=== PATIENT | male | born 1935 | race Asian ===

== ENCOUNTER 2020-10-31 10:57 | Inpatient (IN) | payer MEDICARE, BC ==
[~2020-10-31] VITALS: Ht 167.6 cm; Wt 62.1 kg
[2020-10-31] VITALS (35 sets, daily range): BP systolic 71–140; BP diastolic 34–96
--- NOTE | 2020-10-31 10:57 | NUR ---
PT BIBRA 102 FROM Compact Particle Acceleration C/O SOB/ LOW O2 SAT AT 80% ON RA. PT IS AAOX4, NOTED MILD RESPIRATORY DISTRES, HOOKED TO O2 AT 15LPM VIA RB. HOOKED TO PLUMBING INSTALLER, KEPT RESTED AND COMFORTABLE. WILL CONTINUE TO MONITOR.
--- NOTE | 2020-10-31 11:08 | NUR ---
SEEN AND EXAMINED BY .
--- NOTE | 2020-10-31 11:10 | NUR ---
IV LINE ESTABLISHED BLOOD DRAWN AND SENT TO LAB.
--- NOTE | 2020-10-31 11:15 | NUR ---
MOVE SHEET SUBMITTED.
--- NOTE | 2020-10-31 11:16 | NUR ---
REVIEW NURSE AT BEDSIDE FOR XRAY.
[2020-10-31] MEDS ORDERED: ACETAMINOPHEN 650 MG/SUPP.RECT RC ONE ×2 (11:17→11:30)
[2020-10-31] MEDS ORDERED: IV NS 0.9% 1,000 ML BAG IV ONE (11:30)
[2020-10-31] MEDS ORDERED: VANCOMYCIN 1 GM in IV D5W 250 ML IV ONE (11:30)
[2020-10-31] MEDS ORDERED: PIPERACILLIN /TAZOBACTAM 3.375 G in IV D5W 50 ML IV ONE (11:30)
[2020-10-31 11:35] LABS: BASOPHILS # (AUTO) 0.1 K/uL (0.0-0.2); BASOPHILS % (AUTO) 1.7 % (0.0-2.0); EOSINOPHILS % (AUTO) 1.2 % (0.0-6.0); HEMATOCRIT 31 % (39-51); HEMOGLOBIN 9.9 g/dL (13.5-17.5); LYMPHOCYTES # (AUTO) 1.1 K/uL (0.8-4.8); LYMPHOCYTES % (AUTO) 19.2 % (20.0-44.0); MEAN CORPUSCULAR HGB CONC 32 g/dl (31.0-36.0); MEAN CORPUSCULAR VOLUME 111 fL (80-96); MONOCYTES # (AUTO) 0.4 K/uL (0.1-1.30); MONOCYTES % (AUTO) 7.7 % (2.0-12.0); NEUTROPHILS # (AUTO) 3.9 K/uL (1.8-8.9); NEUTROPHILS % (AUTO) 70.2 % (43.0-81.0); PLATELET COUNT (AUTO) 66 K/uL (150-450); RED BLOOD CELL COUNT(AUTO) 2.81 MIL/uL (4.5-6.0); WHITE BLOOD COUNT (AUTO) 5.5 K/uL (4.3-11.0)
[2020-10-31] MEDS ORDERED: SENN-261 PO (11:37)
[2020-10-31] MEDS ORDERED: DULO20CA PO (11:37)
[2020-10-31] MEDS ORDERED: BISA10SU11 RC (11:37)
[2020-10-31] MEDS ORDERED: ALLO100T PO (11:37)
[2020-10-31] MEDS ORDERED: MAGN400O6 PO (11:37)
[2020-10-31] MEDS ORDERED: MIRT-90 PO (11:37)
[2020-10-31] MEDS ORDERED: METO25TA20 PO (11:37)
[2020-10-31] MEDS ORDERED: INSU100V11 SQ (11:37)
[2020-10-31] MEDS ORDERED: GLUC1KIT IM (11:37)
[2020-10-31] MEDS ORDERED: CYAN-51 PO (11:37)
[2020-10-31] MEDS ORDERED: ACET-868 PO (11:37)
[2020-10-31] MEDS ORDERED: THIA100T70 PO (11:37)
[2020-10-31] MEDS ORDERED: ESCI5TAB PO (11:37)
[2020-10-31] MEDS ORDERED: APIX2.5T PO (11:37)
[2020-10-31] MEDS ORDERED: FOLI0.4T6 PO (11:37)
[2020-10-31] MEDS ORDERED: GABA-532 PO (11:37)
[2020-10-31] MEDS ORDERED: LEVO250P3 IV (11:37)
[2020-10-31] MEDS ORDERED: SODI3.5O5 EACHEYE (11:37)
[2020-10-31] MEDS ORDERED: FINA5TAB11 PO (11:37)
[2020-10-31] MEDS ORDERED: CHOL100062 PO (11:37)
[2020-10-31] MEDS ORDERED: HYDR-4076 PO (11:37)
[2020-10-31] MEDS ORDERED: VANC1PIG IV (11:37)
[2020-10-31] MEDS ORDERED: MELA1TAB47 PO (11:37)
[2020-10-31] MEDS ORDERED: TAMS-12 PO (11:37)
[2020-10-31] MEDS ORDERED: NA P133E RC (11:37)
[2020-10-31] MEDS ORDERED: POLY15DR40 EACHEYE (11:37)
--- NOTE | 2020-10-31 11:40 | NUR ---
URINE SPECIMEN COLLECTED AND SENT TO LAB.
[2020-10-31 11:50] LABS: BILIRUBIN,URINE SMALL (NEGATIVE); COLOR,URINE ORANGE (YELLOW); LEUKOCYTE ESTERASE ,URINE TRACE (NEGATIVE); NITRITE, URINE NEGATIVE (NEGATIVE); PROTEIN,URINE TRACE mg/dl (NEGATIVE); UGLUCOSE NEGATIVE (NEGATIVE); UROBILINOGEN,URINE 0.2 EU/dL (0.2)
[2020-10-31 11:56] LABS: CALCIUM, SERUM 9.4 mg/dL (8.5-10.1); CARBON DIOXIDE 24 mmol/L (21-32); CHLORIDE 125 mmol/L (98-107); CREATININE 3.4 mg/dL (0.6-1.3); GLUCOSE 56 mg/dL (74-106); UREA NITROGEN, BLOOD 58 mg/dL (7-18)
[2020-10-31 12:01] LABS: ALANINE AMINOTRANSFERASE 15 U/L (12-78); ALBUMIN 2.3 g/dL (3.4-5.0); ALKALINE PHOSPHATASE 54 U/L (46-116); ASPARTATE AMINOTRANSFERASE 63 U/L (15-37); BILIRUBIN,DIRECT 1.7 mg/dL (0.0-0.2); BILIRUBIN,TOTAL 2.4 mg/dL (0.2-1.0); TOTAL PROTEIN, SERUM 7.1 g/dL (6.4-8.2)
[2020-10-31 12:02] LABS: ABG BASE EXCESS -6.7 mmol/L; ABG OXYGEN SATURATION 96.1 % (92.0-98.5); ABG PCO2 35.4 mmHg (35.0-45.0); ABG PH 7.335 (7.350-7.450); ABG PO2 100.8 mmHg (75.0-100.0); AaDO2 237.5 mmHg; COHb 0.3 % (0.5-1.5); MetHb 0.4 % (0.0-1.5); O2Hb 95.4 % (94.0-97.0); SITE, ABG Right Radial; VENT MODE, BG simple mask
[2020-10-31 12:02] LABS: SODIUM SERUM 162 mmol/L (136-145)
[2020-10-31 12:03] LABS: WBC,URINE 81-100 /HPF (0-3)
[2020-10-31 12:04] LABS: BACTERIA,URINE 2+ /HPF (None Seen); YEAST,URINE Hyphal filaments /HPF (None Seen)
--- NOTE | 2020-10-31 12:05 | NUR ---
BRENDA DAUGHTER [phone]
--- NOTE | 2020-10-31 12:15 | NUR ---
[facility] CALLED SOFTWARE RELEASE ENGINEER PAGED.
--- NOTE | 2020-10-31 12:19 | NUR ---
LATEST V/S REPORTED TO . 1L NORMAL SALINE STARTED ORDERED.
[2020-10-31] MEDS ORDERED: IV NS 0.9% 1,000 ML IV ONE (12:30)
[2020-10-31 12:42] LABS: EOSINOPHILS % (MANUAL) 2 % (0-4); LYMPHOCYTES % (MANUAL) 24 % (16-48); MONOCYTES % (MANUAL) 6 % (0-11.0); NEUTROPHILS % (MANUAL) 68 (42-76)
--- NOTE | 2020-10-31 13:06 | NUR ---
GOT BED 256
--- NOTE | 2020-10-31 13:14 | NUR ---
REPORT GIVEN TO SAM MCINTOSH OF ICU FOR GARRET.
[2020-10-31] MEDS ORDERED: MAG HYDROX/AL HYDROX/SIMETH 30 ML UDC PO PRN (14:00)
[2020-10-31] MEDS ORDERED: NA PHOS,M-B/NA PHOS,DI-BA 1 EA ENEMA RC PRN (14:00)
[2020-10-31] MEDS ORDERED: BISACODYL SUPP (10 MG) 10 MG/SUPP.RECT SUPP.RECT RC PRN (14:00)
[2020-10-31] MEDS ORDERED: NOREPINEPHRINE 8 MG in IV NS 0.9% 250 ML IV ONE (14:00)
[2020-10-31] MEDS ORDERED: hydrALAZINE HCL 25 MG TABLET PO PRN (14:00)
[2020-10-31] MEDS ORDERED: MAGNESIUM HYDROXIDE 30 ML UDC PO PRN ×2 (14:00)
[2020-10-31] MEDS ORDERED: ACETAMINOPHEN 325 MG TABLET PO PRN ×2 (14:00)
[2020-10-31] MEDS ORDERED: SENNOSIDES 8.6 MG TABLET PO PRN (14:00)
[2020-10-31] MEDS ORDERED: ONDANSETRON HCL/PF 4 MG/2 ML VIAL IVP PRN (14:00)
[2020-10-31] MEDS ORDERED: Z GUARD REMEDY 2 OZ OINT TP PRN (14:00)
[2020-10-31] MEDS ORDERED: ZOLPIDEM TARTRATE 5 MG TABLET PO PRN (14:00)
[2020-10-31] MEDS ORDERED: DEXTROSE 50%-WATER 50 ML DISP.SYRIN IV PRN (14:00)
[2020-10-31] MEDS ORDERED: Medication Not On Formulary EA (Melatonin 1 MG) PO PRN (14:00)
--- NOTE | 2020-10-31 14:20 | NUR ---
ADMISSION NOTES PT BROUGHT UP TO ICU VIA ED GURNEY ACCOMPANIED BY RN AND TECH. PT IS A&OX0 AND BREATHING EVEN AND UNLABROED ON 6L SIMPLE MASK. GURGLING COULD BE HEARD FROM PT UPPER AIRWAY. PT TRANSFERRED TO HOSPITAL BED VIA DRAW SHEET. PT CURRENTLY ON 0.1 LEVO. SKIN ASSESSMENT WILL START SOON. PT WAS UNABLE TO DRINK FLUIDS CAUSING A SERIOUS RISK FOR ASPIRATION. SR ON THE MONITOR. VSS, ADMISSION WILL START SOON.
[2020-10-31] MEDS ORDERED: GLUCAGON,HUMAN RECOMBINANT 1 MG/VIAL VIAL IM PRN (15:00)
[2020-10-31] MEDS ORDERED: IV NS 0.9% 1,000 ML IV PRN (16:30)
[2020-10-31] MEDS: CYANOCOBALAMIN 500 MCG TABLET PO SCH (17:00)
[2020-10-31] MEDS ORDERED: METOPROLOL TARTRATE 25 MG TABLET PO SCH (17:00)
[2020-10-31] MEDS: POLYVINYL ALCOHOL/POVIDONE 0.4 ML DROPERETTE EACHEYE SCH (17:18)
[2020-10-31] MEDS: FINASTERIDE (5 MG) 5 MG TABLET PO SCH (18:00)
--- NOTE | 2020-10-31 18:00 | NUR ---
LAB REPORT ZOILA FROM LAB CALLED AND GAVE REPORT. TROPONIN I IS 1.284. RN READ BACK TO CONFIRM, WILL INFORM .
--- NOTE | 2020-10-31 18:05 | NUR ---
MD COMMUNICATION RN INFORMED OF PT'S TROPONIN I . ACKNOWLEDGED. NO NEW ORDERS AT THIS TIME.
[2020-10-31] MEDS: BLOOD SUGAR DIAGNOSTIC 1 EACH STRIP IN SCH ×2 (18:12→23:57)
--- NOTE | 2020-10-31 18:17 | NUR ---
PLATE GLASS GRINDER SPOKE TO PT'S DAUGHTER BRENDA VALENTINE ([phone]). BRENDA STATES THAT PATIENT PT IS FULLY VACCINATED FOR COVID, STATES HE GOT BOTH SHOTS AROUND FEBRUARY AND MARCH, UNSURE WHETHER PFYZER OR MODERNA. BRENDA STATES PT WAS ONLY AT [facility] FOR 1 DAY BEFORE COMING HERE. PT LIVES AT [facility] ([phone]) WITH HIS . AT THIS TIME BRENDA STATES SHE WOUND LIKE PT TO BE A FULL CODE BUT WILL TALK TO HER SISTER FILOMENA ARANGO ([phone]) AND HER MOTHER, PATIENTS IF THEY WISH TO CHANGE PT'S CODE STATUS. PLATE GLASS GRINDER EXPLAINED THE DIFFERENCE BETWEEN FULL CODE, DNR, DNI AND CHEMICAL CODE, BRENDA STATED UNDERSTANDING. BRENDA STATED THAT SHE LIVES IN [place], [place] AND FILOMENA LIVES IN THE [place] SO NEITHER DAUGHTER LIVES NEAR BY.
[2020-10-31] MEDS: CEFEPIME 1 GM in IV D5W 50 ML IV SCH (18:20)
--- NOTE | 2020-10-31 18:28 | NUR ---
A REP FROM [facility] ([phone]) CALLED TO SEE IF WE NEEDED ANY MORE INFORMATION ABOUT THE PATIENT. MILL WORK ASKED FOR INFORMATION REGARDING PATIENTS COVID VACCINATIONS. REP STATED PT GOT PFIZER VACCINE AND WILL FAX OVER A COPY OF PT'S VACCINE CARD FOR SPECIFIC DATES.
--- NOTE | 2020-10-31 19:11 | NUR ---
RN NOTES PT REPORT AND SBAR GIVEN TO PRESS HAND SUPERVISOR RN. PT CURRENTLY A&OX0 BREATHING EVEN AND UNLABORED ON 6L SIMPLE MASK. FLACC = 0. PT STILL UNABLE TO SWALLOW WATER. LEVO @ 0.2. PT ENDORSED IN STABLE CONDITIN. ALL QUESTIONS ANSWERED.
[2020-10-31] MEDS: HYDROCORTISONE SOD SUCCINATE 100 MG/2 ML VIAL IV SCH (19:30)
--- NOTE | 2020-10-31 19:45 | NUR ---
RN NOTE NOTIFIED STEM ROLLER SOBEIDA ALVARADO REGARDING ELECTROLYTES AND SODIUM AT 162, IVF CHANGE TO D5 0/45% NS @ 100ML/HR
--- NOTE | 2020-10-31 19:50 | NUR ---
RT NOTE NASOTRACHEAL SUCTION PERFORMED ON PATIENT. MODERATE THICK BANUELOS AND BLOODY SECRETIONS NOTED. PT TOLERATED WELL. SAM CROOKS @ BEDSIDE. B/S IMPROVED POST SX. WILL CONTINUE TO MONITOR CLOSELY.
--- NOTE | 2020-10-31 20:30 | NUR ---
RN NOTE: PERSON TO NOTIFY & CODE STATUS SPOKE WITH DAUGHTER BRENDA, WHO SAYS SHE WILL BE THE PERSON TO NOTIFY. SHE AND HER FAMILY VOCALIZED TO US HER FATHER WILL BE DNR/DNI. WITNESSED BY CEDRIC VARGAS
[2020-10-31] MEDS: IV D5/0.45 NACL 1,000 ML IV PRN (20:44)
[2020-10-31] MEDS ORDERED: CEFEPIME 2 GM in IV D5W 100 ML IV SCH (21:00)
[2020-10-31] MEDS ORDERED: NOREPINEPHRINE 4 MG/4 ML AMPUL IV ONE (21:58)
[2020-10-31] MEDS: TAMSULOSIN 0.4 MG CAP.SR.24H PO SCH (22:00)
[2020-10-31] MEDS: MIRTAZAPINE 15 MG TABLET PO SCH (22:00)
[2020-10-31] MEDS: NOREPINEPHRINE 8 MG in IV NS 0.9% 242 ML IV PRN (22:12)
--- NOTE | 2020-10-31 23:59 | NUR ---
RN NOTE BLOOD SUGAR 125, NO COVERAGE NEEDED
[2020-11-01] VITALS (95 sets, daily range): BP systolic 70–147; BP diastolic 42–104
--- NOTE | 2020-11-01 00:17 | NUR ---
RN NOTE NOTIFIED HEEL EDGE INKER MACHINE SOBEIDA ALVARADO REGARDING PT INCREASING TROPONIN LEVELS, ORDERS FOR ANOTHER TROP IN 4 HOURS CARRIED OUT ALSO NOTIFIED LOZENGE MAKER HELPER REGARDING ACCU CHECK NO SSI, ORDERS FOR MILD SSI CARRIED OUT
[2020-11-01] MEDS: HYDROCORTISONE SOD SUCCINATE 100 MG/2 ML VIAL IV SCH ×3 (04:23→21:12)
[2020-11-01 04:39] LABS: BASOPHILS # (AUTO) 0.1 K/uL (0.0-0.2); BASOPHILS % (AUTO) 0.6 % (0.0-2.0); EOSINOPHILS % (AUTO) 0.3 % (0.0-6.0); HEMATOCRIT 32 % (39-51); LYMPHOCYTES # (AUTO) 0.4 K/uL (0.8-4.8); LYMPHOCYTES % (AUTO) 4.4 % (20.0-44.0); MEAN CORPUSCULAR HGB CONC 32 g/dl (31.0-36.0); MEAN CORPUSCULAR VOLUME 112 fL (80-96); MONOCYTES # (AUTO) 0.3 K/uL (0.1-1.30); MONOCYTES % (AUTO) 3.2 % (2.0-12.0); NEUTROPHILS % (AUTO) 91.5 % (43.0-81.0); PLATELET COUNT (AUTO) 54 K/uL (150-450); RED BLOOD CELL COUNT(AUTO) 2.82 MIL/uL (4.5-6.0); WHITE BLOOD COUNT (AUTO) 8.8 K/uL (4.3-11.0)
[2020-11-01 05:05] LABS: CHOLESTEROL 58 mg/dL (<200); HDL CHOLESTEROL 26 mg/dL (40-60); LDL 18 mg/dL (0-99); TRIGLYCERIDES 56 mg/dL (30-150); VANCOMYCIN,RANDOM 33 ug/ml (18-26)
[2020-11-01 05:09] LABS: ALANINE AMINOTRANSFERASE 22 U/L (12-78); ALBUMIN 2.2 g/dL (3.4-5.0); ALKALINE PHOSPHATASE 66 U/L (46-116); ASPARTATE AMINOTRANSFERASE 113 U/L (15-37); BILIRUBIN,TOTAL 2.9 mg/dL (0.2-1.0); CALCIUM, SERUM 8.6 mg/dL (8.5-10.1); CARBON DIOXIDE 19 mmol/L (21-32); CHLORIDE 125 mmol/L (98-107); CREATININE 3.4 mg/dL (0.6-1.3); GLUCOSE 185 mg/dL (74-106); MAGNESIUM 1.9 mg/dL (1.8-2.4); TOTAL PROTEIN, SERUM 6.8 g/dL (6.4-8.2); UREA NITROGEN, BLOOD 60 mg/dL (7-18)
[2020-11-01 05:12] LABS: CREATINE KINASE, TOTAL 1602 U/L (39-308)
[2020-11-01] MEDS: BLOOD SUGAR DIAGNOSTIC 1 EACH STRIP IN SCH ×4 (05:12→23:18)
[2020-11-01] MEDS: IV D5/0.45 NACL 1,000 ML IV PRN ×2 (05:27→16:01)
[2020-11-01 05:34] LABS: SODIUM SERUM 160 mmol/L (136-145)
[2020-11-01] MEDS: INSULIN REGULAR, HUMAN 100 UNIT/ML 3 ML VIAL SQ PRN ×4 (05:42→23:47)
[2020-11-01] MEDS: CEFEPIME 1 GM in IV D5W 50 ML IV SCH ×2 (06:37→18:08)
[2020-11-01 06:41] LABS: BAND % (MANUAL) 6 % (0.0-5.0); EOSINOPHILS % (MANUAL) 1 % (0-4); LYMPHOCYTES % (MANUAL) 5 % (16-48); MONOCYTES % (MANUAL) 3 % (0-11.0); NEUTROPHILS % (MANUAL) 85 (42-76)
--- NOTE | 2020-11-01 07:04 | NUR ---
RN CLOSING NOTE PT REMAINS IN STABLE CONDITION AT THIS TIME TOLERATING 6L OF SIMPLE MASK OF O2, AND LEVOPHED RUNNING AT 0.2 MCG/KG/MIN. BED BATH DONE, TURN REPOSITION Q2H HOURS, ORAL CARE FREQUENTLY. NPO UNTIL SWALLOW EVAL, PT STILL DROWSY, UNABLE TO FOLLOW COMMANDS. LAB CALLED FOR RESULT OF 160 SODIUM, TRENDING DOWN FROM PREVIOUS VALUE. CHLORIDE 125 STILL SAME BEFORE. PT HAS IVF RUNNING ORDERED. SAFETY MEASURES IN PLACE. HOB ELEVATED SIDE RAILS UP X3, BED LOCKED IN LOWEST POSITION WITH BED ALARM ON. Addendum: 11/01/20 at 0715 by VALERIY JOHNSON RN WILL ENDORSE TO AM SHIFT FOR CONTINUATION OF CARE
--- NOTE | 2020-11-01 07:30 | NUR ---
RN NOTES PT FOUND HOB @ 20 DEGREES DISPLAYING NO S/S OF DISTRESS, FLACC = 0 AND BREATHING IS EVEN AND UNLABORED ON 6L O2 SIMPLE MASK. LEVO IS RUNNING 0.2 MG/MK/MIN MAINTAINING BP WNL. L UA PICC, DRESSING DRY AND INTACT. VSS, RN WILL MONITOR AND TREAT THROUGHOUT SHIFT. SAFETY MEASURES IN PLACE BED LOCKED AND IN LOWEST POSITION, SIDE RAILS UPX2, CALL LIGHT WITHIN REACH, BED ALARMS ARMED.
--- NOTE | 2020-11-01 08:30 | NUR ---
CRITICAL LAB [facility] CALLED AND INFORMED RN THAT LACTIC ACID IS 4.[address] MIKE.
[2020-11-01] MEDS: GABAPENTIN 100 MG CAPSULE PO SCH (09:00)
[2020-11-01] MEDS ORDERED: SODIUM CHLORIDE 5% OPHTH OINT 3.5 GM TUBE EACHEYE SCH (09:00)
[2020-11-01] MEDS: FOLIC ACID 1 MG TABLET PO SCH (09:00)
[2020-11-01] MEDS: CHOLECALCIFEROL 1,000 UNIT TABLET (VIT D3) PO SCH (09:00)
[2020-11-01] MEDS: THIAMINE HCL 100 MG TABLET PO SCH (09:00)
[2020-11-01] MEDS ORDERED: APIXABAN 2.5 MG TABLET PO SCH ×2 (09:00→10:00)
[2020-11-01] MEDS: ESCITALOPRAM OXALATE (10 MG) 10 MG TABLET PO SCH (09:00)
[2020-11-01] MEDS: CYANOCOBALAMIN 500 MCG TABLET PO SCH ×2 (09:00→17:00)
[2020-11-01] MEDS: DULOXETINE HCL 20 MG CAPSULE.DR PO SCH (09:00)
[2020-11-01] MEDS: NOREPINEPHRINE 8 MG in IV NS 0.9% 242 ML IV PRN ×2 (09:12→18:13)
[2020-11-01] MEDS: POLYVINYL ALCOHOL/POVIDONE 0.4 ML DROPERETTE EACHEYE SCH ×2 (09:19→17:12)
[2020-11-01] MEDS ORDERED: HEPARIN INFUSION/D5W 500 ML IV PRN (09:30)
--- NOTE | 2020-11-01 09:49 | NUR ---
MD COMMUNICATION RN SPOKE TO MD. MD GAVE ORDERS, D/C OSMAN. START HEPARIN PER PHARMACY PROTOCOL. RN READ BACK ORDERS TO CONFIRM AND WILL ENTER DIRECTED.
--- NOTE | 2020-11-01 10:00 | NUR ---
RN NOTE RN SPOKE TO ST, ST STATED THAT SHE IS UNABLE TO PERFORM SWALLOW EVAL WITH PATIENT'S CURRENT COGNITIVE STATE. RN WILL THEN HOLD ALL PO RX AND INFORM PROVIDER.
[2020-11-01] MEDS: FINASTERIDE (5 MG) 5 MG TABLET PO SCH (17:57)
--- NOTE | 2020-11-01 19:27 | NUR ---
RN NOTES SBAR AND REPORT GIVEN TO MAGNET MAKER NURSE FOR GARRET. PT CURRENTLY ABLE TO MAKE SIMPLE COMMUNICATIONS, IMPROVEMENT FROM EARLIER. LEVO STILL AT 0.2, FACE MASK AT 6L. FLACC = 0 AND BREATHING IS EVEN AND UNLABORED. SAFETY MEASURES IN PLACE.
--- NOTE | 2020-11-01 19:50 | NUR ---
RN OPENING NOTE REC'D PT IN BED, OPENS EYES RESPONDS TO TOUCH. PT LETHARGIC. PT ON 6L OF O2 VIA SIMPLE MASK TOLERATING WELL. IV SITES INTACT FLUSHED ASEPTICALLY, RIK, JANA PICC NOTED BLOOD RETURN. PT REMAINS WITH CHAMBERLAIN CATH NOTED NEW ONSET OF BLOOD TINGED URINE, NOTIFIED DIRECTOR ORANGE SOBEIDA ALVARADO. WILL CONT TO MONITOR. IVF RUNNING ORDERED. SAFETY MEASURES IN PLACE. HOB ELEVATED. SIDE RAILS UP X2, BED LOCKED IN LOWEST POSITION WITH BED ALARM ON. WILL CONT TO MONITOR CLOSELY THROUGHOUT SHIFT
--- NOTE | 2020-11-01 20:59 | NUR ---
RN NOTE O2 PT PLACED ON NASAL CANNULA, NOW AT 3L NO DISTRESS NOTED NO SOB O2 SAT IS 98%
[2020-11-01] MEDS: MIRTAZAPINE 15 MG TABLET PO SCH (21:06)
[2020-11-01] MEDS: TAMSULOSIN 0.4 MG CAP.SR.24H PO SCH (21:06)
[2020-11-02] VITALS (69 sets, daily range): BP systolic 84–145; BP diastolic 44–98
[2020-11-02] MEDS: IV D5/0.45 NACL 1,000 ML IV PRN (01:13)
--- NOTE | 2020-11-02 03:21 | NUR ---
RN NOTE TITRATING LEVO, AT THIS TIME IS 0.08 MCG/KG/MIN SBP >90 ORDERED
[2020-11-02 04:44] LABS: CALCIUM, SERUM 8.3 mg/dL (8.5-10.1); CARBON DIOXIDE 19 mmol/L (21-32); CHLORIDE 124 mmol/L (98-107); CREATININE 3.7 mg/dL (0.6-1.3); GLUCOSE 161 mg/dL (74-106); POTASSIUM 3.4 mmol/L (3.5-5.1); UREA NITROGEN, BLOOD 66 mg/dL (7-18)
[2020-11-02 04:45] LABS: BASOPHILS % (AUTO) 0.3 % (0.0-2.0); EOSINOPHILS % (AUTO) 0.2 % (0.0-6.0); HEMATOCRIT 29 % (39-51); HEMOGLOBIN 9.3 g/dL (13.5-17.5); LYMPHOCYTES # (AUTO) 0.4 K/uL (0.8-4.8); MEAN CORPUSCULAR HGB CONC 32 g/dl (31.0-36.0); MEAN CORPUSCULAR VOLUME 110 fL (80-96); MONOCYTES # (AUTO) 0.3 K/uL (0.1-1.30); MONOCYTES % (AUTO) 3.1 % (2.0-12.0); NEUTROPHILS # (AUTO) 9.4 K/uL (1.8-8.9); NEUTROPHILS % (AUTO) 92.4 % (43.0-81.0); PLATELET COUNT (AUTO) 53 K/uL (150-450); RED BLOOD CELL COUNT(AUTO) 2.59 MIL/uL (4.5-6.0); WHITE BLOOD COUNT (AUTO) 10.2 K/uL (4.3-11.0)
[2020-11-02] MEDS: HYDROCORTISONE SOD SUCCINATE 100 MG/2 ML VIAL IV SCH ×3 (04:51→20:40)
[2020-11-02 05:10] LABS: SODIUM SERUM 158 mmol/L (136-145)
[2020-11-02] MEDS: CEFEPIME 1 GM in IV D5W 50 ML IV SCH ×2 (05:12→18:06)
[2020-11-02] MEDS: BLOOD SUGAR DIAGNOSTIC 1 EACH STRIP IN SCH ×3 (05:12→18:05)
[2020-11-02] MEDS: INSULIN REGULAR, HUMAN 100 UNIT/ML 3 ML VIAL SQ PRN ×3 (05:32→18:12)
--- NOTE | 2020-11-02 06:41 | NUR ---
RN CLOSING NOTE PT AT THIS TIME REMAINS ON 3L OF NASAL CANNULA, TOLERATING WELL. NO RESP DISTRESS OR SOB NOTED. STILL WITH AFIB BBB, PT REMAINS ON LEVO AT 0.06 MCG/KG/MIN WITH IVF RUNNING. PT BED BATH AND WOUND CARE DONE, TURN AND REPOSITIONED Q2H. ORAL CARE DONE FREQUENTLY. SAFETY MEASURES IN PLACE. ALL NEEDS ATTENDED. DENIES PAIN. SAFETY MEASURES IN PLACE. HOB ELEVATED. SIDE RAILS UP X2, BED LOCKED IN LOWEST POSITION WITH BED ALARM ON. WILL ENDORSE TO DAY SHIFT RN FOR CONTINUATION OF CARE
--- NOTE | 2020-11-02 07:06 | NUR ---
RN NOTE NOTIFIED FRENCH TRANSLATOR SOBEIDA ALVARADO REGARDING HGB 6.5 ORDERS TO TRANSFUSE 1 UNIT PRBC CARRIED OUT.
--- NOTE | 2020-11-02 07:30 | NUR ---
LANDSCAPE DRAFTER OPENING NOTE PT IN BED SEMIFOWLER'S, BREATHING NC 2L SPO2 100%, NO S/S OF RESP DISTRESS OR SOB. PT A/Ox2 WITH PERIODS OF CONFUSION, PT DENIES PAIN, PT CONTROLLED A-FIB IN 80s ON BEDSIDE TELEMONITOR. PT HAS JANA PICC AND LFA #18, RUNNING LEVO @ 0.04 MCG/KG/MIN (JUST TITRATED FROM 0.06) AND D5 1/2 NS @ 100 ML/HR. PT GENERALIZED EDEMA NOTED, BILAT ARM REDNESS AND VERY THIN SKIN. PT SACRAL DTI ASSESSED WITH WOUND NURSE SCOUT, PT LT FOOT 2ND TOE COVERED IN XEROFORM AND DRY DRSG. PT DUE FOR SWALLOW EVAL TODAY, CURRENTLY NPO. PT CHAMBERLAIN CATH DRAINING RED AND SIDDHARTH URINE TO GRAVITY, HEMATURIA NOTED, WILL INFORM MD. ALL PT SAFETY PRECAUTIONS IN PLACE, WILL CONT TO MONITOR
--- NOTE | 2020-11-02 07:45 | NUR ---
WOUND CARE CONSULT: PT PRESENTS WITH SACRAL DTI IN EVOLUTION, DISCOLORATION TO UPPER AND LOWER EXTREMITIES AND SUTURE TO LEFT 2ND TOE, PRESENT ON ADMISSION. DPM CONSULT WAS CALLED TO DR SHEA AND SURGICAL CONSULT TO BE CALLED TO DR KONG. RECOMMENDATIONS MADE FOR SKIN PROTECTION. DISCUSSED WITH NURSING STAFF. PT IS ON CARMEN ISOFLEX LOW AIRLOSS BED. PT NOTED TO HAVE VERY FRAGILE SKIN, ESPECIALLY TO UPPER EXTREMITIES WHICH ARE DISCOLORED AND EDEMATOUS. MD IN AGREEMENT WITH PLAN OF CARE. Addendum: 11/02/20 at 0749 by SCOUT LIANG WNDNU Amended: Links added.
[2020-11-02] MEDS: CYANOCOBALAMIN 500 MCG TABLET PO SCH ×2 (09:00→18:05)
[2020-11-02] MEDS: ESCITALOPRAM OXALATE (10 MG) 10 MG TABLET PO SCH (09:00)
[2020-11-02] MEDS: FOLIC ACID 1 MG TABLET PO SCH (09:00)
[2020-11-02] MEDS: THIAMINE HCL 100 MG TABLET PO SCH (09:00)
[2020-11-02] MEDS: GABAPENTIN 100 MG CAPSULE PO SCH (09:00)
[2020-11-02] MEDS: CHOLECALCIFEROL 1,000 UNIT TABLET (VIT D3) PO SCH (09:00)
[2020-11-02] MEDS: DULOXETINE HCL 20 MG CAPSULE.DR PO SCH (09:00)
[2020-11-02] MEDS: POLYVINYL ALCOHOL/POVIDONE 0.4 ML DROPERETTE EACHEYE SCH ×2 (09:29→18:05)
[2020-11-02] MEDS ORDERED: POTASSIUM CHLORIDE 20 MEQ TAB.PRT.SR PO SCH (11:00)
[2020-11-02] MEDS ORDERED: VANCOMYCIN 1 GM in IV D5W 250 ML IV SCH (12:00)
[2020-11-02 12:06] LABS: *SPE A/G RATIO 0.7 (0.7-1.7); *SPE ALPHA-1-GLOBULIN 0.3 g/dL (0.0-0.4); *SPE ALPHA-2-GLOBULIN 0.6 g/dL (0.4-1.0); *SPE BETA GLOBULIN 0.7 g/dL (0.7-1.3); *SPE M-SPIKE 0.3 g/dL (Not Observed)
--- NOTE | 2020-11-02 13:30 | NUR ---
RN NOTE PHARMACIST INFORMED OF NO VANCO TROUGH DRAWN TO THIS POINT, PER PHARMACIST, OK IF 1200 VANCO NOT GIVEN A RANDOM VANCO TROUGH ORDERED FOR TOMORROW MORNING. 11/01 TROUGH OF 33
[2020-11-02] MEDS: Potassium Chloride 20 MEQ in IV D5W 1,000 ML IV PRN (15:49)
[2020-11-02] MEDS: FINASTERIDE (5 MG) 5 MG TABLET PO SCH (18:05)
[2020-11-02] MEDS: NOREPINEPHRINE 8 MG in IV NS 0.9% 242 ML IV PRN (18:29)
--- NOTE | 2020-11-02 19:05 | NUR ---
SHIPPING CLERK CRATING CLOSING NOTE PT AFIB ON BEDSIDE MONITOR HR 104. ALL WOUND CARE PERFORMED PER MD ORDER. PT ON LEVO @ 0.02 MCG/KG/MIN AND D5W 20 MEQ KCL @ 100 ML/HR. PT DID NOT EAT MUCH FOR DINNER, HIGH ASPIRATION RISK. ALL PT SAFETY PRECAUTINOS IN EFFECT, GARRET ENDORSED TO ANCILLARY SERVICES MANAGER RN
--- NOTE | 2020-11-02 19:40 | NUR ---
COLLECTIONS ATTORNEY NOTE, PT IN BED BREATHING EVEN AND UNLABORED, NO SOB/ACUTE DISTRESS NOTED , AT NC 2L WITH SPO2 100% AT THIS TIME, NO S/S OF PAIN OR DISCOMFORT AT THIS TIME, A-FIB CONTROL IN THE TELE MONITOR, HR 80-100S AT TH IS TIME, JANA PICC AND LFA #18, RUNNING LEVO @ 0.01 MCG/KG/MIN AND D5 1/2 NS @ 100 ML/HR INFUSING WELL AND PT TOLERATED WELL, SUPRA CHAMBERLAIN CATH IN PLACE DRAINING SIDDHARTH URINE WITH SLIGHT HEMATURIA, AWARE, ALL PT SAFETY PRECAUTIONS IN PLACE, HOB ELEVATED AT ALL TIMES, ASPIRATION PRECAUTIONS IN PLACED, WILL CONT TO MONITOR CLOSELY.
[2020-11-02] MEDS: MIRTAZAPINE 15 MG TABLET PO SCH (21:52)
[2020-11-02] MEDS: TAMSULOSIN 0.4 MG CAP.SR.24H PO SCH (21:53)
[2020-11-03] VITALS (61 sets, daily range): BP systolic 88–134; BP diastolic 48–79
--- NOTE | 2020-11-03 | NUR ---
Patient resting vs remains stable.Afib.No distress noted.Turned and repositioned.Blood sugar monitored.
[2020-11-03] MEDS: BLOOD SUGAR DIAGNOSTIC 1 EACH STRIP IN SCH ×4 (00:20→17:17)
[2020-11-03] MEDS: INSULIN REGULAR, HUMAN 100 UNIT/ML 3 ML VIAL SQ PRN ×4 (00:23→17:18)
[2020-11-03] MEDS: Potassium Chloride 20 MEQ in IV D5W 1,000 ML IV PRN ×3 (03:19→21:00)
[2020-11-03] MEDS: HYDROCORTISONE SOD SUCCINATE 100 MG/2 ML VIAL IV SCH ×3 (04:45→21:00)
[2020-11-03 05:11] LABS: BASOPHILS % (AUTO) 0.2 % (0.0-2.0); HEMATOCRIT 28 % (39-51); HEMOGLOBIN 8.9 g/dL (13.5-17.5); LYMPHOCYTES # (AUTO) 0.3 K/uL (0.8-4.8); LYMPHOCYTES % (AUTO) 2.9 % (20.0-44.0); MEAN CORPUSCULAR HGB CONC 32 g/dl (31.0-36.0); MEAN CORPUSCULAR VOLUME 109 fL (80-96); MONOCYTES # (AUTO) 0.3 K/uL (0.1-1.30); MONOCYTES % (AUTO) 2.7 % (2.0-12.0); NEUTROPHILS % (AUTO) 94.2 % (43.0-81.0); RED BLOOD CELL COUNT(AUTO) 2.55 MIL/uL (4.5-6.0); WHITE BLOOD COUNT (AUTO) 9.5 K/uL (4.3-11.0)
[2020-11-03 05:19] LABS: PLATELET COUNT (AUTO) 45 K/uL (150-450)
[2020-11-03 05:29] LABS: CALCIUM, SERUM 7.8 mg/dL (8.5-10.1); CARBON DIOXIDE 20 mmol/L (21-32); CHLORIDE 119 mmol/L (98-107); CREATININE 3.5 mg/dL (0.6-1.3); GLUCOSE 193 mg/dL (74-106); POTASSIUM 3.7 mmol/L (3.5-5.1); SODIUM SERUM 151 mmol/L (136-145); UREA NITROGEN, BLOOD 71 mg/dL (7-18); VANCOMYCIN,RANDOM 28 ug/ml (18-26)
[2020-11-03] MEDS: CEFEPIME 1 GM in IV D5W 50 ML IV SCH ×2 (06:08→17:16)
[2020-11-03 06:10] LABS: EOSINOPHILS % (MANUAL) 1 % (0-4); LYMPHOCYTES % (MANUAL) 2 % (16-48); MONOCYTES % (MANUAL) 4 % (0-11.0); NEUTROPHILS % (MANUAL) 93 (42-76)
--- NOTE | 2020-11-03 07:15 | NUR ---
STAINED GLASS JOINER NOTE, PT IN BED BREATHING EVEN AND UNLABORED, NO SOB/ACUTE DISTRESS NOTED , AT NC 2L WITH SPO2 100% AT THIS TIME, NO S/S OF PAIN OR DISCOMFORT AT THIS TIME, A-FIB CONTROL IN THE TELE MONITOR, HR 80-100S AT TH IS TIME, CONT ON LEVO @ 0.01 MCG/KG/MIN AND D5 1/2 NS @ 100 ML/HR INFUSING WELL AND PT TOLERATED WELL, CHAMBERLAIN CATH IN PLACE, NO HEMATURIA NOTED, ALL SAFETY PRECAUTIONS IN PLACE, HOB ELEVATED AT ALL TIMES, ASPIRATION PRECAUTIONS, WILL ENDORSE CONTINUITY OF CARE TO ONCOMING NURSE.
--- NOTE | 2020-11-03 07:30 | NUR ---
MODEL MAKING SUPERVISOR OPENING NOTE PT IN BED SEMIFOWLER'S, BREATHING NC 2L SPO2 99%, NO S/S OF RESP DISTRESS OR SOB. PT A/Ox1 CONFUSED AND DROWSY, PT DENIES PAIN, PT CONTROLLED A-FIB IN 90s ON BEDSIDE TELEMONITOR. PT HAS JANA PICC AND LFA #18, RUNNING LEVO @ 0.01 MCG/KG/MIN AND D5W 20 MEQ KCL @ 100 ML/HR. PT GENERALIZED EDEMA NOTED, BILAT ARM REDNESS AND VERY THIN SKIN. PT SACRAL DTI, PT LT FOOT 2ND TOE COVERED IN XEROFORM AND DRY DRSG. PT DUE FOR SWALLOW EVAL TODAY AGAIN. PT CHAMBERLAIN CATH DRAINING SIDDHARTH URINE TO GRAVITY. ALL PT SAFETY PRECAUTIONS IN PLACE, WILL CONT TO MONITOR
--- NOTE | 2020-11-03 07:45 | NUR ---
RN NOTE DR URRUTIA AWARE PT CONTROLLED A-FIB, HR 105
[2020-11-03] MEDS: CYANOCOBALAMIN 500 MCG TABLET PO SCH ×2 (08:40→17:00)
[2020-11-03] MEDS: THIAMINE HCL 100 MG TABLET PO SCH (08:40)
[2020-11-03] MEDS: DULOXETINE HCL 20 MG CAPSULE.DR PO SCH (08:40)
[2020-11-03] MEDS: GABAPENTIN 100 MG CAPSULE PO SCH (08:41)
[2020-11-03] MEDS: ESCITALOPRAM OXALATE (10 MG) 10 MG TABLET PO SCH (08:41)
[2020-11-03] MEDS: CHOLECALCIFEROL 1,000 UNIT TABLET (VIT D3) PO SCH (08:41)
[2020-11-03] MEDS: FOLIC ACID 1 MG TABLET PO SCH (08:42)
[2020-11-03] MEDS: POLYVINYL ALCOHOL/POVIDONE 0.4 ML DROPERETTE EACHEYE SCH ×2 (08:43→17:17)
--- NOTE | 2020-11-03 09:00 | NUR ---
RN NOTE PER SPEECH THERAPIST ANALIA LOVELL FAILED SWALLOW EVAL TODAY, CHOKING AND COUGHING WITH EVERY SPOONFUL OF THICKENED LIQUID GIVEN
[2020-11-03] MEDS: FINASTERIDE (5 MG) 5 MG TABLET PO SCH (17:18)
--- NOTE | 2020-11-03 17:48 | NUR ---
RN NOTE SLIGHT AMOUNT OF HEMATURIA NOTED IN PT'S CHAMBERLAIN CATH. DNP, PUSHPA AWARE
--- NOTE | 2020-11-03 19:00 | NUR ---
ICU NOTES Received patient with DX: SEPSIS ,NSTEMI.DNR/DNI status.. Resting oriented x1 otherwise confused and disoriented.Reoriented to place and time.Follows simple commands.Respiration even and unlabored with O2 2L NC saturation 100%.Afib controlled 90's [id number]'s.NPO patient failed swallow eval today.IVF infusing well via JANA PICC LINE.FC to gravity.No acute distress noted.Turned and repositioned off loading pressure points.Safety precaution maintained.Call light at bedside within easy reach.
--- NOTE | 2020-11-03 19:05 | NUR ---
HOME IMPROVEMENT ADVISOR CLOSING PT ON NC 2L, SPO2 100%, NO RESP DISTRESS OR SOB NOTED, PT STILL CONFUSED WITH INCOMPREHENSIBLE SPEECH. PT OFF OF LEVO SINCE 1430, ON D5W 20 MEQ @ 100 ML/HR. PT NOW NPO. ALL WOUND CARE TAKEN CARE OF. ALL PT SAFETY PRECAUTIONS IN PLACE, WILL ENDORSE GARRET TO ONCOMING RN
[2020-11-03] MEDS: TAMSULOSIN 0.4 MG CAP.SR.24H PO SCH (21:42)
[2020-11-03] MEDS: MIRTAZAPINE 15 MG TABLET PO SCH (21:43)
[2020-11-04] VITALS (24 sets, daily range): BP systolic 92–155; BP diastolic 52–97
[2020-11-04] MEDS: BLOOD SUGAR DIAGNOSTIC 1 EACH STRIP IN SCH ×4 (00:08→17:33)
[2020-11-04 04:39] LABS: CALCIUM, SERUM 8.2 mg/dL (8.5-10.1); CARBON DIOXIDE 21 mmol/L (21-32); CHLORIDE 118 mmol/L (98-107); CREATININE 3.2 mg/dL (0.6-1.3); GLUCOSE 176 mg/dL (74-106); POTASSIUM 3.9 mmol/L (3.5-5.1); SODIUM SERUM 148 mmol/L (136-145); UREA NITROGEN, BLOOD 71 mg/dL (7-18)
[2020-11-04] MEDS: HYDROCORTISONE SOD SUCCINATE 100 MG/2 ML VIAL IV SCH ×3 (04:53→21:20)
[2020-11-04] MEDS: CEFEPIME 1 GM in IV D5W 50 ML IV SCH ×2 (05:47→17:10)
[2020-11-04] MEDS: INSULIN REGULAR, HUMAN 100 UNIT/ML 3 ML VIAL SQ PRN ×3 (05:50→17:33)
--- NOTE | 2020-11-04 06:00 | NUR ---
ICU NOTES Patient more awake.VS remains stable.Afib controlled.AM care done.Turned and repositioned off loading pressure points.Report given to day shift RN for GARRET.
[2020-11-04 07:07] LABS: IMMUNOGLOBULIN A, SERUM 551 mg/dL (61-437); IMMUNOGLOBULIN G, SERUM 1932 mg/dL (603-1613); IMMUNOGLOBULIN M, SERUM 78 mg/dL (15-143)
--- NOTE | 2020-11-04 08:00 | NUR ---
PATIENT AWKE, MUMBLES WORDS, ABLE TO SPEAK SOME WORDS CLEARLY. FOLLOWS SIMPLE COMMANDS. BP STABLE OFF PRESSOR. AFIB 100'S ON MPNITOR. DENIES PAIN.
[2020-11-04] MEDS: FOLIC ACID 1 MG TABLET PO SCH (08:18)
[2020-11-04] MEDS: GABAPENTIN 100 MG CAPSULE PO SCH (08:18)
[2020-11-04] MEDS: THIAMINE HCL 100 MG TABLET PO SCH (08:19)
[2020-11-04] MEDS: ESCITALOPRAM OXALATE (10 MG) 10 MG TABLET PO SCH (08:19)
[2020-11-04] MEDS: CHOLECALCIFEROL 1,000 UNIT TABLET (VIT D3) PO SCH (08:19)
[2020-11-04] MEDS: DULOXETINE HCL 20 MG CAPSULE.DR PO SCH (08:19)
[2020-11-04] MEDS: POLYVINYL ALCOHOL/POVIDONE 0.4 ML DROPERETTE EACHEYE SCH ×2 (08:20→17:09)
[2020-11-04] MEDS: CYANOCOBALAMIN 500 MCG TABLET PO SCH ×2 (08:21→17:09)
[2020-11-04] MEDS: Potassium Chloride 20 MEQ in IV D5W 1,000 ML IV PRN ×2 (08:22→23:41)
--- NOTE | 2020-11-04 09:00 | NUR ---
STABLE FOR MS TRANSFER PER DR. HERNANDEZ . OKAYED BY HOSPITALIST Lex WHITE, SERGIO.
[2020-11-04 09:40] LABS: BASOPHILS % (AUTO) 0.2 % (0.0-2.0); HEMATOCRIT 29 % (39-51); HEMOGLOBIN 9.3 g/dL (13.5-17.5); LYMPHOCYTES # (AUTO) 0.4 K/uL (0.8-4.8); LYMPHOCYTES % (AUTO) 4.7 % (20.0-44.0); MEAN CORPUSCULAR HGB CONC 33 g/dl (31.0-36.0); MEAN CORPUSCULAR VOLUME 110 fL (80-96); MONOCYTES # (AUTO) 0.2 K/uL (0.1-1.30); MONOCYTES % (AUTO) 2.5 % (2.0-12.0); NEUTROPHILS # (AUTO) 7.3 K/uL (1.8-8.9); NEUTROPHILS % (AUTO) 92.6 % (43.0-81.0); RED BLOOD CELL COUNT(AUTO) 2.61 MIL/uL (4.5-6.0); WHITE BLOOD COUNT (AUTO) 7.9 K/uL (4.3-11.0)
[2020-11-04 09:45] LABS: PLATELET COUNT (AUTO) 43 K/uL (150-450)
[2020-11-04 09:57] LABS: MAGNESIUM 1.9 mg/dL (1.8-2.4); PHOSPHORUS 2.5 mg/dL (2.5-4.9)
--- NOTE | 2020-11-04 10:00 | NUR ---
RIGHT HEEL DTI PER NOC RN REPORTED, NO PICTURE TAKEN, TOOK PICTURE, PLACED ON CHART. KEPT BOTH HEELS ELEVATED WITH PILLOWS.
[2020-11-04 10:52] LABS: LYMPHOCYTES % (MANUAL) 3 % (16-48); MONOCYTES % (MANUAL) 2 % (0-11.0); NEUTROPHILS % (MANUAL) 95 (42-76)
--- NOTE | 2020-11-04 12:00 | NUR ---
SPEECH THERAPIST FOLLOW UP- REMAINS NPO EXCEPT MEDS IN SMALL AMOUNTS. VDEO SWALLOW EVAL NEEDED TO RULE OUT ASPIRATION.
--- NOTE | 2020-11-04 13:00 | NUR ---
FAMILY A BEDSIDE-UPDATED WITH POC.
--- NOTE | 2020-11-04 14:00 | NUR ---
ON RA -SATS 98%.
--- NOTE | 2020-11-04 14:15 | NUR ---
REPORT GIVEN TO MS SAM LOUISE.
--- NOTE | 2020-11-04 15:33 | NUR ---
MS RN NOTES PT TRANSFERRED FROM ICU TO UNIT RM 325-1 VIA HIS BED AT 1515 ACCOMPANIED BY DONALDO, FIXTURE BUILDER AND ONE LOGISTICS OPERATIONS MANAGER. PT IS AWAKE, A/O X1 TO NAME ONLY. MUMBLES WORDS AND FOLLOWS SOME SIMPLE COMMANDS. PT HAS JANA TRIPLE LUMEN PICC WITH IVF OF D5W +20 MEQ KCL @ 40 ML/HR. PT NOTED WITH GENERALIZED EDEMA, ALL EXTREMITIES ELEVATED WITH PILLOWS. PT WITH B/L ARM/HANDS REDNESS AND VERY THIN FRAGILE SKIN, HIGH RISKS FOR SKIN BREAKDOWN. SACRAL DTI, LT FOOT 2ND TOE COVERED IN XEROFORM AND DRY DRESSING NOTED. CHAMBERLAIN CATH IN PLACE DRAINING CLEAR YELLOW URINE OUTPUT TO GRAVITY. SAFETY PRECAUTIONS IN PLACE: BED PLACED IN LOWEST LOCKED POSITION WITH SIDE-RAILS UP X2. HOB KEPT ELEVATED. CALL LIGHT W/I EASY REACH. WILL CONTINUE TO MONITOR PT.
[2020-11-04] MEDS: FINASTERIDE (5 MG) 5 MG TABLET PO SCH (17:09)
--- NOTE | 2020-11-04 18:50 | NUR ---
MS RN CLOSING NOTES PT IN BED AWAKE AND LYING AT SEMI-CHRISTENSEN'S POSITION. A/O X1 TO NAME ONLY. MUMBLES WORDS AND FOLLOWS SOME SIMPLE COMMANDS. PT FOR XR VIDEO SWALLOW SPEECH TOMORROW, NPO EXCEPT MEDS MAINTAINED. ON ROOM AIR, TOLERATING WELL WITH NO SOB NOTED. JANA TRIPLE LUMEN PICC IN PLACE WITH IVF OF D5W +20 MEQ KCL @ 40 ML/HR INFUSING WELL. GENERALIZED EDEMA PERSIST, ALL EXTREMITIES ELEVATED WITH PILLOWS. CHAMBERLAIN CATH IN PLACE DRAINING CLEAR YELLOW URINE OUTPUT VIA GRAVITY, CHAMBERLAIN CARE DONE. PT TURNED AND REPOSITIONED Q 2HRS AND PRN. ALL NEEDS AND CARE PROVIDED WELL. SAFETY MEASURES IN PLACED: BED IN LOWEST LOCKED POSITION WITH SIDE-RAILS UP X2. HOB KEPT ELEVATED. CALL LIGHT W/I REACH. WILL ENDORSE GARRET TO [place] KNITTER NURSE.
--- NOTE | 2020-11-04 20:42 | NUR ---
MS RN OPENING NOTES Patient is A&Ox1, oriented to self only. Follows some commands, able to make some needs known -though staff will anticipate needs. Sitting in bed with TV on. No signs of distress. Bed in lowest position, brakes on HOB 45, call light within reach, bed alarm on. Pt is NPO except meds. JANA PICC line patent and flushing. Will continue to monitor pt
[2020-11-04] MEDS: MIRTAZAPINE 15 MG TABLET PO SCH (21:20)
[2020-11-04] MEDS: TAMSULOSIN 0.4 MG CAP.SR.24H PO SCH (21:20)
[2020-11-04] MEDS ORDERED: IV PREMIX D5W + KCL 1,000 ML IV ONE (22:59)
[2020-11-05] MEDS: INSULIN REGULAR, HUMAN 100 UNIT/ML 3 ML VIAL SQ PRN ×4 (00:32→17:13)
[2020-11-05] MEDS: BLOOD SUGAR DIAGNOSTIC 1 EACH STRIP IN SCH ×4 (00:35→17:13)
[2020-11-05 01:47] VITALS: BP 137/87
[2020-11-05] MEDS: HYDROCORTISONE SOD SUCCINATE 100 MG/2 ML VIAL IV SCH ×3 (05:01→20:24)
--- NOTE | 2020-11-05 06:40 | NUR ---
Patient has been alert and oriented x1 sleeping intermittently throughout night -easy to wake. All fall and safety precautions in place though patient does not try to get out of bed. Aspiration precautions in place as well -no cough or choke noted. Has been stable on RA above 97% O2 sat. 375cc output to salas cath overnight. pt is still NPO except meds. JANA PICC flushed and patent. no s/s of hypo or hyperglycemic reactions noted.
[2020-11-05 06:53] LABS: BASOPHILS % (AUTO) 0.1 % (0.0-2.0); HEMATOCRIT 30 % (39-51); HEMOGLOBIN 9.8 g/dL (13.5-17.5); LYMPHOCYTES # (AUTO) 0.2 K/uL (0.8-4.8); LYMPHOCYTES % (AUTO) 2.8 % (20.0-44.0); MEAN CORPUSCULAR HGB CONC 33 g/dl (31.0-36.0); MEAN CORPUSCULAR VOLUME 108 fL (80-96); MONOCYTES # (AUTO) 0.2 K/uL (0.1-1.30); MONOCYTES % (AUTO) 2.8 % (2.0-12.0); NEUTROPHILS # (AUTO) 7.8 K/uL (1.8-8.9); NEUTROPHILS % (AUTO) 94.3 % (43.0-81.0); PLATELET COUNT (AUTO) 52 K/uL (150-450); RED BLOOD CELL COUNT(AUTO) 2.76 MIL/uL (4.5-6.0); WHITE BLOOD COUNT (AUTO) 8.3 K/uL (4.3-11.0)
[2020-11-05 07:16] LABS: CALCIUM, SERUM 8.6 mg/dL (8.5-10.1); CARBON DIOXIDE 18 mmol/L (21-32); CHLORIDE 115 mmol/L (98-107); CREATININE 2.7 mg/dL (0.6-1.3); GLUCOSE 189 mg/dL (74-106); MAGNESIUM 1.9 mg/dL (1.8-2.4); PHOSPHORUS 2.7 mg/dL (2.5-4.9); POTASSIUM 3.7 mmol/L (3.5-5.1); SODIUM SERUM 145 mmol/L (136-145); UREA NITROGEN, BLOOD 63 mg/dL (7-18)
--- NOTE | 2020-11-05 07:30 | NUR ---
RN OPENING NOTE RECEIVED PATIENT IN BED. A/O X1-2. ON ROOM AIR, IN NO APPARENT DISTRESS. CURRENTLY ON NPO EXCEPT MEDS. IV ACCESS ON JANA PICC LINE, D5W + 20 mEq KCL RUNNING AT 40 ML/HR, INTACT AND PATENT. CHAMBERLAIN CATHETER IN PLACE, DRAINING YELLOW URINE. SAFETY MEASURES MAINTAINED. BED IN LOWEST POSITION, BRAKES LOCKED. SIDE RAILS UP X2. CALL LIGHT WITHIN REACH. WILL CONTINUE PLAN OF CARE.
[2020-11-05 08:00] VITALS: BP 121/88
[2020-11-05] MEDS: CHOLECALCIFEROL 1,000 UNIT TABLET (VIT D3) PO SCH (08:20)
[2020-11-05] MEDS: GABAPENTIN 100 MG CAPSULE PO SCH (08:20)
[2020-11-05] MEDS: CYANOCOBALAMIN 500 MCG TABLET PO SCH ×2 (08:20→17:00)
[2020-11-05] MEDS: FOLIC ACID 1 MG TABLET PO SCH (08:20)
[2020-11-05] MEDS: ESCITALOPRAM OXALATE (10 MG) 10 MG TABLET PO SCH (08:21)
[2020-11-05] MEDS: THIAMINE HCL 100 MG TABLET PO SCH (08:21)
[2020-11-05] MEDS: POLYVINYL ALCOHOL/POVIDONE 0.4 ML DROPERETTE EACHEYE SCH ×2 (08:21→18:25)
[2020-11-05] MEDS: DULOXETINE HCL 20 MG CAPSULE.DR PO SCH (08:21)
[2020-11-05 09:29] LABS: LYMPHOCYTES % (MANUAL) 2 % (16-48); MONOCYTES % (MANUAL) 3 % (0-11.0); NEUTROPHILS % (MANUAL) 95 (42-76)
--- NOTE | 2020-11-05 12:02 | NUR ---
RN NOTE PATIENT WAS SEEN COUGHING ON THIN FLUID, HONEY THICK AND PUREE UPON VIDEO SWALLOW. PER MEÑO SHE RECOMMENDS PT TO BE ON NPO. INFORMED PUJA WHITE NP, OF THE RESULT AND ORDERED TO KEEP THE PT ON NPO. RECEIVED ORDER AND CARRIED OUT.
[2020-11-05] MEDS ORDERED: BARIUM SULFATE 148 GM SUSP.RECON PO ONE (12:07)
[2020-11-05] MEDS ORDERED: BARIUM SULFATE 240 ML ORAL.SUSP PO ONE (12:07)
[2020-11-05 16:00] VITALS: BP 126/92
[2020-11-05] MEDS: FINASTERIDE (5 MG) 5 MG TABLET PO SCH (17:13)
[2020-11-05] MEDS: Potassium Chloride 20 MEQ in IV D5W 1,000 ML IV PRN (17:27)
--- NOTE | 2020-11-05 18:19 | NUR ---
RN CLOSING NOTE PATIENT IN BED. A/O X1-2. ON ROOM AIR, NO S/S OF RESPIRATORY DISTRESS. IV ACCESS ON JANA PICC LINE, D5W + 20 mEq KCL RUNNING AT 40 ML/HR, INTACT AND PATENT. CHAMBERLAIN CATHETER IN PLACE, DRAINING YELLOW URINE, 300 CC OUTPUT. WOUND TREATMENT ORDERED. SAFETY MEASURES MAINTAINED. BED IN LOWEST POSITION, BRAKES LOCKED. SIDE RAILS UP X2. CALL LIGHT WITHIN REACH. WILL ENDORSE CONTINUITY OF CARE TO ONCOMING SHIFT.
--- NOTE | 2020-11-05 19:35 | NUR ---
RN NOTES PATIENT IN BED. A/O X1 ON ROOM AIR, NO S/S OF RESPIRATORY DISTRESS. IV ACCESS ON JANA PICC LINE, D5W + 20 mEq KCL RUNNING AT 40 ML/HR, INTACT AND PATENT. CHAMBERLAIN CATHETER IN PLACE, DRAINING YELLOW URINE. SAFETY MEASURES MAINTAINED. BED IN LOWEST POSITION, BRAKES LOCKED. SIDE RAILS UP X2. CALL LIGHT WITHIN REACH. WILL CONTINUE TO MONITOR.
[2020-11-05 20:43] VITALS: BP 132/89
[2020-11-05] MEDS: TAMSULOSIN 0.4 MG CAP.SR.24H PO SCH (22:00)
[2020-11-05] MEDS: MIRTAZAPINE 15 MG TABLET PO SCH (22:00)
[2020-11-06] MEDS: BLOOD SUGAR DIAGNOSTIC 1 EACH STRIP IN SCH ×3 (00:09→12:22)
[2020-11-06] MEDS: INSULIN REGULAR, HUMAN 100 UNIT/ML 3 ML VIAL SQ PRN ×3 (00:15→12:23)
[2020-11-06] MEDS: HYDROCORTISONE SOD SUCCINATE 100 MG/2 ML VIAL IV SCH (04:21)
[2020-11-06 06:25] LABS: BASOPHILS % (AUTO) 0.1 % (0.0-2.0); HEMATOCRIT 32 % (39-51); HEMOGLOBIN 10.4 g/dL (13.5-17.5); LYMPHOCYTES # (AUTO) 0.2 K/uL (0.8-4.8); LYMPHOCYTES % (AUTO) 2.8 % (20.0-44.0); MEAN CORPUSCULAR HGB CONC 33 g/dl (31.0-36.0); MEAN CORPUSCULAR VOLUME 108 fL (80-96); MONOCYTES # (AUTO) 0.2 K/uL (0.1-1.30); MONOCYTES % (AUTO) 2.9 % (2.0-12.0); NEUTROPHILS # (AUTO) 7.7 K/uL (1.8-8.9); NEUTROPHILS % (AUTO) 94.2 % (43.0-81.0); PLATELET COUNT (AUTO) 87 K/uL (150-450); RED BLOOD CELL COUNT(AUTO) 2.97 MIL/uL (4.5-6.0); WHITE BLOOD COUNT (AUTO) 8.2 K/uL (4.3-11.0)
--- NOTE | 2020-11-06 06:38 | NUR ---
RN NOTES PATIENT IN BED. A/O X1 ON ROOM AIR, NO S/S OF RESPIRATORY DISTRESS. IV ACCESS ON JANA PICC LINE, D5W + 20 mEq KCL RUNNING AT 40 ML/HR, INTACT AND PATENT. CHAMBERLAIN CATHETER IN PLACE, DRAINING YELLOW URINE. SAFETY MEASURES MAINTAINED. BED IN LOWEST POSITION, BRAKES LOCKED. SIDE RAILS UP X2. CALL LIGHT WITHIN REACH. WILL ENDORSE CARE TO DAY SHIFT NURSE
[2020-11-06 06:47] LABS: CALCIUM, SERUM 8.7 mg/dL (8.5-10.1); CARBON DIOXIDE 17 mmol/L (21-32); CHLORIDE 114 mmol/L (98-107); CREATININE 2.6 mg/dL (0.6-1.3); GLUCOSE 246 mg/dL (74-106); PHOSPHORUS 3.3 mg/dL (2.5-4.9); SODIUM SERUM 145 mmol/L (136-145); UREA NITROGEN, BLOOD 66 mg/dL (7-18)
--- NOTE | 2020-11-06 07:34 | NUR ---
MS RN OPENING NOTE RECEIVED PATIENT AWAKE IN BED. ALERT AND ORIENTED X 1. NO S/S OF DISTRESS NOTED. NO SOB. BREATHING IS EVEN AND UNLABORED. PT ON 2L OXYGEN VIA NC. IV ACCESS JANA PICC LINE PATENT AND INTACT WITH D5W+20MEQ @40MLS/HR. PT NOTED WITH CHAMBERLAIN CATHETER DRAINING CLEAR YELLOW URINE. SAFETY MEASURES MAINTAINED WITH BED LOCKED AT LOW POSITION AND SIDE RAILS UP X2. CALL LIGHT IS WITHIN REACH . WILL CONTINUE TO MONITOR THROUGHOUT SHIFT.
[2020-11-06] MEDS: THIAMINE HCL 100 MG TABLET PO SCH (08:10)
[2020-11-06] MEDS: DULOXETINE HCL 20 MG CAPSULE.DR PO SCH (08:10)
[2020-11-06] MEDS: GABAPENTIN 100 MG CAPSULE PO SCH (08:10)
[2020-11-06] MEDS: FOLIC ACID 1 MG TABLET PO SCH (08:10)
[2020-11-06] MEDS: ESCITALOPRAM OXALATE (10 MG) 10 MG TABLET PO SCH (08:10)
[2020-11-06] MEDS: CYANOCOBALAMIN 500 MCG TABLET PO SCH (08:11)
[2020-11-06] MEDS: CHOLECALCIFEROL 1,000 UNIT TABLET (VIT D3) PO SCH (08:11)
[2020-11-06] MEDS: POLYVINYL ALCOHOL/POVIDONE 0.4 ML DROPERETTE EACHEYE SCH (08:28)
[2020-11-06 12:34] LABS: LYMPHOCYTES % (MANUAL) 3 % (16-48); MONOCYTES % (MANUAL) 2 % (0-11.0); NEUTROPHILS % (MANUAL) 95 (42-76)
--- NOTE | 2020-11-06 15:46 | NUR ---
MS RN NOTES PATIENT WAS DISCHARGED WITH STABLE VITAL SIGNS. A/O X 1, ABLE TO FOLLOW COMMANDS. NO S/S DISTRESS NOTED. NO SOB. BREATHING IS EVEN AND UNLABORED. ID BAND REMOVED. CHAMBERLAIN AND PICC LINE KEPT IN PLACE. PT LEFT UNIT AT THIS TIME WITH AMBULANCE ACCOMPANIED BY 2 EMT. LEFT MESSAGE WITH SOBEIDA AT [facility] TO CALL ME BACK FOR REPORT LINDA RN WAS NOT ABLE TO ANSWER.
[2020-11-06] MEDS ORDERED: HYDROCORTISONE SOD SUCCINATE 100 MG/2 ML VIAL IV SCH (17:00)
== END 2020-11-06 15:35 | disposition hospice, inpatient (51) | DRG 871 ==
LOC: ER 11:03 → ICU 13:11 → TELE 11-04 15:06 → MED 11-04 18:34
PROVIDERS: ADMIT Family Medicine; ATTEND Family Medicine
PROC: 02HV33Z Insertion of Infusion Device into Superior Vena Cava, Percutaneous Approach (ICD-10-PCS; principal; 2020-10-31)
PROC: B548ZZA Ultrasonography of Superior Vena Cava, Guidance (ICD-10-PCS; 2020-10-31)
DX: A41.9 Sepsis, unspecified organism (principal); G93.41 Metabolic encephalopathy; R65.21 Severe sepsis with septic shock; E43 Unspecified severe protein-calorie malnutrition; N17.0 Acute kidney failure with tubular necrosis; J18.9 Pneumonia, unspecified organism; J96.21 Acute and chronic respiratory failure with hypoxia; K72.00 Acute and subacute hepatic failure without coma; I21.A1 Myocardial infarction type 2; E87.0 Hyperosmolality and hypernatremia; N39.0 Urinary tract infection, site not specified; D68.69 Other thrombophilia; E87.2 Acidosis; E11.22 Type 2 diabetes mellitus with diabetic chronic kidney disease; E11.649 Type 2 diabetes mellitus with hypoglycemia without coma; I48.91 Unspecified atrial fibrillation; Z20.822 Contact with and (suspected) exposure to COVID-19; N18.9 Chronic kidney disease, unspecified; E88.09 Other disorders of plasma-protein metabolism, not elsewhere classified; N40.0 Benign prostatic hyperplasia without lower urinary tract symptoms; E11.51 Type 2 diabetes mellitus with diabetic peripheral angiopathy without gangrene; M10.9 Gout, unspecified; R62.7 Adult failure to thrive; Z68.22 Body mass index [BMI] 22.0-22.9, adult; R13.10 Dysphagia, unspecified; D69.6 Thrombocytopenia, unspecified; Z51.5 Encounter for palliative care; Z66 Do not resuscitate; D53.9 Nutritional anemia, unspecified; E11.621 Type 2 diabetes mellitus with foot ulcer; L97.529 Non-pressure chronic ulcer of other part of left foot with unspecified severity
CPT/HCPCS: 36415; 36569; 36600; 71045-TC; 74230-TC; 76770-TC; 80048-TC; 80053-TC; 80061-TC; 80076-TC; 80202-TC; 81001; 82533; 82550-TC; 82553; 82784; 82962-TC; 83605-TC; 83735-TC; 83880; 83970; 84100-TC; 84155; 84165; 84484-TC; 85025-TC; 85730-TC; 86334; 87040-TC; 87081-TC; 87086-TC; 92526; 92611-TC; 93307-TC; 97112-TC; 97530-TC; 97535-TC; C9803; G0378; J0692; J1720; J1815; J2543; J3370; J3480; J3490; J7030; J7050; J7060; J7070; U0003